=== PATIENT | female | born 1995 | race Hispanic/Latino ===

== ENCOUNTER 2025-03-10 11:20 | Emergency (ER) | payer MEDICAID ==
[~2025-03-10] VITALS: Ht 175.3 cm; Wt 83.2 kg
--- NOTE | 2025-03-10 11:30 | ERN ---
General Chief Complaint: Vaginal Bleeding Stated Complaint: VAGINAL BLEED Time Seen by MD: 11:25 Source: patient History of Present Illness Initial Comments Patient is a 29-year-old female coming in complaining of vaginal bleed. Per patient she was recently evaluated and states he is five weeks . Allergies: Coded Allergies: No Known Drug Allergies (Unverified Allergy, Unknown, 03/10/25) Past Medical History Past Medical History: No Pertinent History Medical History Other: denies pmhx Past Surgical History: None Female( History) LMP: Jan 31, 2025 : 1 Para: 0 ROS Dictation CONSTITUTIONAL: No chills, no fever, no weakness, no diaphoresis, no malaise. HEAD/FACE: No signs of trauma. EENT: No eye pain, no blurred vision, no tearing, no double vision, no ear pain, no ear discharge, no nose pain, no nasal congestion, no throat pain, no throat swelling, no mouth pain. RESPIRATORY: No cough, no orthopnea, no SOB, no stridor, no wheezing. CARDIOVASCULAR: No chest pain, no edema, no palpitations, no syncope. GASTROINTESTINAL/ABDOMINAL: No abdominal pain, no constipation, no diarrhea, no nausea, no vomiting. GENITOURINARY: abnormal discharge, no dysuria, no frequent urination, no hematuria. No complaints of pain in the genitals. MUSCULOSKELETAL: No back pain, no gout, no joint pain, no joint swelling, no muscle pain, no muscle stiffness, no neck pain. INTEGUMENTARY: No change in color, no change in hair/nails, no dryness, no lesion, no lumps, no rash. NEUROLOGICAL/PSYCH: No anxiety, not depressed, no emotional problem, no headache, no numbness, no pre-existing deficit, no history of seizures, no tremors, no weakness. HEMATOLOGIC/LYMPHATIC: Not anemic, no history of blood clots, no apparent bleeding, no bruising, glands not swollen. All Systems Negative, Except as Noted. Physical Exam Physical Exam Dictation VITAL SIGNS: Reviewed. GENERAL APPEARANCE: Alert, oriented x3, no acute distress, obese. HEAD AND FACE: Non-traumatic. EYES: PERRL, pink conjunctivas, eyelid no trauma, anterior chamber clear. EARS: Pinnas intact and no signs of trauma or erythema. Ear canals clear and no discharge. TMs no erythema. NOSE: No discharge, no bleeding. OROPHARYNX: Mouth normal, teeth no caries, tongue pink. Pharynx clear, no erythema. Tonsils no exudates, no abscesses noted. Mucous membrane moist. NECK: Supple, non-tender, no thyromegaly, no masses, no JVD, no bruits. BREAST: Deferred. CHEST: No tenderness, no crepitus, no paradoxical movement, no retractions. LUNGS: Clear, well-ventilated, symmetric, no rales, no wheezing, no rhonchi, no stridor, good breath sounds bilaterally. HEART: Regular rate, regular rhythm, no murmur, no gallops. VASCULAR: No peripheral edema. ABDOMEN: Soft, positive bowel sounds, nondistended, no guarding, nontender, no rebound, no masses no hepatomegaly, no splenomegaly, no Campos's sign, no hernias. RECTAL: Deferred. GENITAL: Deferred. NEUROLOGICAL: Normal speech, gross motor function intact, gross sensory function intact. MUSCULOSKELETAL: Neck nontender, full range of motion, back nontender, full range of motion. EXTREMITIES: Nontender, full range of motion. SKIN: Color pink, dry, no turgor, no rash, no lacerations, no abrasions, no contusions. LYMPHATICS: Deferred. Results Laboratory and Microbiology Lab and Micro Result Laboratory Tests Test 03/10/25 11:25 03/10/25 11:39 Urine Color LIGHT-YELLOW (YELLOW) Urine Appearance CLOUDY (CLEAR) H Urine pH 6.5 (5.0-8.0) Urine Specific [place] 1.012 (1.001-1.031) Urine Protein NEGATIVE mg/dL (NEGATIVE) Urine Glucose (UA) >=1000 mg/dL (NEGATIVE) H Urine Ketones 10 mg/dL (NEGATIVE) H Urine Occult Blood MODERATE (NEGATIVE) H Urine Nitrate 1+ (NEGATIVE) H Urine Bilirubin NEGATIVE mg/dL (NEGATIVE) Urine Urobilinogen 0.2 mg/dL (0.2-1.0) Urine Leukocyte Esterase 500 Lillian/uL (NEGATIVE) H Urine HCG, Qualitative POSITIVE (NEGATIVE) H White Blood Count 13.0 K/uL (4.8-10.8) H Red Blood Count 5.05 MIL/uL (4.00-5.50) Hemoglobin 14.2 g/dL (12.0-16.0) Hematocrit 41.3 % (36-48) Mean Corpuscular Volume 81.8 fL (79-99) Mean Corpuscular Hemoglobin 28.1 pg (27.0-33.0) Mean Corpuscular Hemoglobin Concent 34.4 g/dL (32.0-36.0) Red Cell Distribution Width 12.6 % (11.0-15.5) Platelet Count 324 K/uL (130-400) Mean Platelet Volume 9.1 fL (7.5-10.5) Immature Granulocyte % (Auto) 0.7 % (0-1) Neutrophils (%) (Auto) 74.1 % (40.0-77.0) Lymphocytes (%) (Auto) 18.5 % (21.0-51.0) L Monocytes (%) (Auto) 5.5 % (3.0-13.0) Eosinophils (%) (Auto) 0.8 % (0.0-8.0) Basophils (%) (Auto) 0.4 % (0.0-5.0) Neutrophils # (Auto) 9.7 K/uL (1.8-7.7) H Lymphocytes # (Auto) 2.4 K/uL (1.0-4.8) Monocytes # (Auto) 0.7 K/uL (0.1-1.0) Eosinophils # (Auto) 0.10 K/uL (0.00-0.70) Basophils # (Auto) 0.05 K/uL (0.00-0.20) Absolute Immature Granulocyte (auto 0.09 K/uL (0-1) Nucleated Red Blood Cells 0.0 % (0.0-0.19) Sodium Level 136 mmol/L (136-145) Potassium Level 3.6 mmol/L (3.5-5.1) Chloride Level 99 mmol/L (101-111) L Carbon Dioxide Level 24 mmol/L (21-32) Blood Urea Nitrogen 7 mg/dL (7-18) Creatinine 0.5 mg/dL (0.5-1.0) Glomerular Filtration Rate Calc 130 mL/min (>90) Random Glucose 303 mg/dL (70-105) H Total Calcium 9.2 mg/dL (8.5-10.1) Human Chorionic Gonadotropin, Quant 661 mIU/mL (0-5) H Labs Reviewed?: Yes EKG/XRAY/US/CT/MRI Ultrasound Comment Ultrasound OB-no IUP at the time MDM MDM: Differential diagnosis: Miscarriage, early , threatened miscarriage Rationale: Tests considered and ordered secondary to shared decision making include: Previous outside records reviewed: Old ER visits. Risk of complication and/or morbidity or mortality of patient management: None Medications-Per medication reconciliation Need for hospitalization: Patient does not meet criteria for hospitalization. Need for emergency major/minor surgery: No Patient is a 29-year-old female coming in complaining of vaginal discomfort vaginal bleed. Ultrasound disclose no IUP laboratory workup hCG 600. Patient will be discharged in stable condition with a diagnosis of threatened misc arriage. I will advise patient to follow up with OBGYN for ongoing evaluation. Long with these laboratory findings patient also presents with a UTI based on urinary analysis. Patient received IV antibiotics we will be discharged with ongoing treatment for home management ED Course Orders Procedure Category Date Status Time Cbc With Differential LAB 03/10/25 Complete 11:29 Hcg,Quantitative LAB 03/10/25 Complete 11:29 ,Urine Test LAB 03/10/25 In Process 11:29 Urinalysis Profile LAB 03/10/25 In Process 11:29 0.9%Nacl 1000ml (Ns PHA 03/10/25 Complete 1000ml) 11:30 Basic Metabolic Panel LAB 03/10/25 Complete 11:29 Us Ob <14 Weeks US 03/10/25 Taken 11:29 Culture Urine KEVIN 03/10/25 Logged 12:13 Ceftriaxone 1g Vial PHA 03/10/25 Transmitted (Rocephine 1g Inj) 12:30 Current Medications Medications (Trade) Dose Ordered Sig/Luz Marina Route PRN Reason Start Time Stop Time Status Last Admin Dose Admin Sodium Chloride 1,000 ml @ 0 mls/hr ONCE ONCE IV 03/10/25 11:30 03/10/25 11:33 DC 03/10/25 11:44 Vital Signs Date Time Temp Pulse Resp B/P (MAP) Pulse Ox O2 Delivery O2 Flow Rate FiO2 03/10/25 11:25 98.2 93 18 136/85 99 Room Air* 0 21 03/10/25 11:22 98.2 93 18 136/85 98 Room Air 0 DX & DISP Disposition: Discharge Departure Impression: Primary Impression: Miscarriage, threatened, early Additional Impression: UTI (urinary tract infection) Condition: Stable Scripts Cephalexin Monohydrate (Keflex) 500 Mg Cap 1 CAP PO BID for 10 Days, #20 CAP 0 Refills Prov: SARA TELLO MD 03/10/25 Additional Instructions: FOLLOW-UP WITH PRIMARY CARE PROVIDER IN 1 TO 2 DAYS. TAKE MEDICATIONS DIRECTED HERE IN THE EMERGENCY ROOM. OKAY TO CONTINUE HOME MEDICATIONS UNLESS OTHERWISE DISCUSSED DURING YOUR VISIT IN THE EMERGENCY ROOM TODAY. RETURN TO YOUR NEAREST EMERGENCY ROOM IF SYMPTOMS WORSEN OR IF THERE IS NO IMPROVEMENT. CALL 911 IF YOU NEED IMMEDIATE ASSISTANCE. TAKE TYLENOL [id number] NEEDED AND IF NO CONTRAINDICATIONS ARE PRESENT. INCREASE ORAL HYDRATION. A WOUND CULTURE OR URINE CULTURE WAS ORDERED HERE IN THE EMERGENCY ROOM DEPARTMENT PLEASE FOLLOW-UP WITH PRIMARY CARE PROVIDER AND ADVISE THEM TO GET REPORTS FROM OUR FACILITY. IF YOU HAD ANY ADRIA WRAP/SPLINTS THAT WERE APPLIED HERE, PLEASE DO NOT REMOVE THEM UNTIL YOU SEE YOUR PRIMARY CARE OR SPECIALTY. Referrals: Referrals: CELIA GÓMEZ MD Time of Disposition: 12:29 SARA TELLO MD Mar 10, 2025 11:30
[2025-03-10 11:44] LABS: IMMATURE GRANULOCYTE ABSOLUTE 0.09 K/uL (0-1); NUCLEATED RED BLOOD CELLS 0.0 % (0.0-0.19); PLATELET COUNT (AUTO) 324 K/uL (130-400); RED BLOOD CELL COUNT(AUTO) 5.05 MIL/uL (4.00-5.50); RED CELL DISTRIBUTION WIDTH 12.6 % (11.0-15.5); WHITE BLOOD COUNT (AUTO) 13.0 K/uL (4.8-10.8)
[2025-03-10] MEDS: 0.9%NACL 1000ML 1,000 ML IV ONE (11:44)
[2025-03-10 11:59] LABS: CREATININE 0.5 mg/dL (0.5-1.0); GLOMERULAR FILTR. RATE CALC 130.0 mL/min (>90); GLUCOSE,RANDOM 303.0 mg/dL (70-105); SODIUM SERUM 136.0 mmol/L (136-145); UREA NITROGEN, BLOOD 7.0 mg/dL (7-18)
[2025-03-10 12:01] LABS: HCG,QUALITATIVE URINE POSITIVE (NEGATIVE)
[2025-03-10 12:05] LABS: APPEARANCE,URINE CLOUDY (CLEAR); GLUCOSE, URINE (UA) >=1000 mg/dL (NEGATIVE); LEUKOCYTE ESTERASE ,URINE 500 Leu/uL (NEGATIVE); NITRATE,URINE 1+ (NEGATIVE); OCCULT BLOOD,URINE MODERATE (NEGATIVE)
[2025-03-10 12:11] LABS: HCG,QUANTITATIVE 661.0 mIU/mL (0-5)
[2025-03-10 12:13] LABS: ADD UA MICROSCOPIC YES
--- NOTE | 2025-03-10 12:15 | NUR ---
US PENDING FOR T
[2025-03-10 12:16] LABS: SQUAMOUS EPITHELIAL CELL,UR RARE /HPF (0-2); WBC CLUMP MANY /HPF (0-1)
[2025-03-10] MEDS ORDERED: CEPH500B PO (12:30)
[2025-03-10 13:20] VITALS: BP 141/80; PULSE 89; RESP 18; TEMP 98.2; O2SAT 99
--- NOTE | 2025-03-11 15:45 | HMCIMG ---
EXAM: US OB <14 WEEKS 03/10/2025 11:29 AM MDT Presented for interpretation on: 03/11/2025 2:41 PM MDT INDICATION: Vaginal bleeding LMP: LMP COMPARISON: None FINDINGS: Grayscale and color Doppler sonographic images transabdominally and transvaginally the latter to better define uterine and adnexal structures. The uterus measures 8.4 x 4.0 x 5.9 cm. The anteverted uterus appears normal.. There is no evidence of any intrauterine . The endometrium is normal in thickness measuring. Both ovaries are normal size with normal echotexture. The right ovary measures 3.3 x 2.1 x 2.6 cm. The left ovary measures 2.4 x 1.6 x 1.4 cm..There is no adnexal mass. The bladder appears normal. There is no pelvic free fluid. IMPRESSION: No evidence of entire colon . I would recommend correlation with beta hCG. From this study an ectopic cannot be excluded
== END 2025-03-10 13:25 | disposition home or self-care (01) ==
LOC: EDH 11:20
DX: O20.0 Threatened abortion (principal); O23.41 Unspecified infection of urinary tract in pregnancy, first trimester; Z3A.01 Less than 8 weeks gestation of pregnancy
CPT/HCPCS: 99285; 96365; 76801; 80048; 84702; 85025; 87086 ×2; 87186; 81001; 81025; 36415; J7030; J0696